=== PATIENT | female | born 1985 | race Caucasian/White ===

== ENCOUNTER 2018-07-27 19:45 | Inpatient (IN) | payer BC, OTHER ==
[~2018-07-27] VITALS: Ht 165.1 cm; Wt 81.0 kg
[2018-07-27] MEDS: LACTATED RINGERS 1,000 ML IV SCH (09:00)
[2018-07-27] MEDS ORDERED: OXYTOCIN 30U/ 0.9% NaCL 500ML 500 ML IV ONE (20:27)
[2018-07-27] MEDS ORDERED: D5%-LACTATED RINGERS 1,000 ML IV SCH (20:27)
[2018-07-27] MEDS ORDERED: MISOPROSTOL 25 MCG TABLET VG PRN (20:30)
[2018-07-27] MEDS ORDERED: ONDANSETRON 2MG/ML, 2ML IVPush PRN (20:30)
[2018-07-27] MEDS ORDERED: FENTANYL PF 100 MCG/2ML IVPush PRN (20:30)
[2018-07-27] MEDS ORDERED: CALCIUM CARBONATE 500 MG TAB.CHEW PO PRN (20:30)
[2018-07-27] MEDS ORDERED: FENTANYL PF 100 MCG/2ML IV PRN (20:30)
[2018-07-27] MEDS ORDERED: NEWBORN KIT ONE (20:36)
[2018-07-27] MEDS ORDERED: MISOPROSTOL 200 MCG TABLET ONE (20:37)
[2018-07-27] MEDS ORDERED: LIDOCAINE/PF 1%, 30ML ONE (20:37)
[2018-07-27] MEDS ORDERED: MISOPROSTOL 25 MCG TABLET ONE (20:51)
[2018-07-27 20:54] LABS: BASOPHILS # (AUTO) 0.03 x10^3/uL (0-0.1); BASOPHILS % (AUTO) 0 % (0-1); EOSINOPHILS # (AUTO) 0.06 x10^3/uL (0-0.4); EOSINOPHILS % (AUTO) 1 % (1-7); LYMPHOCYTES # (AUTO) 2.21 x10^3/uL (1-3.4); LYMPHOCYTES % (AUTO) 21 % (22-44); MD NO; MEAN CORPUSCULAR HEMOGLOBIN 33.3 pg (27.0-34.8); MEAN CORPUSCULAR VOLUME 97.7 fL (80-100); MEAN PLATELET VOLUME 8.5 fL (7.4-10.4); MONOCYTES # (AUTO) 0.96 x10^3/uL (0.2-0.8); MONOCYTES % (AUTO) 9 % (2-9); NEUTROPHILS # (AUTO) 7.05 x10^3/uL (1.8-6.8); NEUTROPHILS % (AUTO) 68 % (42-75); PLATELET COUNT 180 x10^3/uL (130-400); RED CELL DISTRIBUTION WIDTH 13.6 % (9.6-15.2)
[2018-07-27] MEDS: PLEASE ENTER HEIGHT AND WEIGHT MC SCH (21:00)
[2018-07-27 21:22] VITALS: BP 123/91
[2018-07-28] MEDS ORDERED: MISOPROSTOL 25 MCG TABLET ONE (02:03)
[2018-07-28] MEDS: PLEASE ENTER HEIGHT AND WEIGHT MC SCH ×3 (05:00→21:00)
[2018-07-28] MEDS ORDERED: LIDOCAINE 2%, 20ML ONE (05:37)
[2018-07-28] MEDS: FENTANYL/BUPIV./NS/PF 250 ML EPIDCONT SCH ×2 (06:47→09:29)
[2018-07-28] MEDS ORDERED: BUPIVACAINE/PF 0.5% ONE (08:05)
[2018-07-28] MEDS ORDERED: OXYTOCIN 30U/ 0.9% NaCL 500ML 500 ML ONE (09:21)
[2018-07-28] MEDS: LACTATED RINGERS 1,000 ML IV SCH ×3 (09:29→19:15)
[2018-07-28] MEDS ORDERED: ONDANSETRON 2MG/ML, 2ML IVPush PRN (09:30)
[2018-07-28] MEDS ORDERED: DIPHENHYDRAMINE 50 MG/ML, 1ML IVPush PRN (09:30)
[2018-07-28] MEDS ORDERED: NALOXONE 0.4 MG/ML, 1ML IVPush PRN (09:30)
[2018-07-28] MEDS ORDERED: EPHEDRINE 50 MG/ML, 1ML IVPush PRN (09:30)
[2018-07-28] MEDS ORDERED: LACTATED RINGERS 1,000 ML IVBOLUS PRN (09:30)
[2018-07-28 19:36] VITALS: BP 118/77
[2018-07-28] MEDS ORDERED: SODIUM CITRATE/CITRIC ACID 30 ML UDC ONE (20:10)
[2018-07-28] MEDS ORDERED: METOCLOPRAMIDE 5 MG/ML, 2ML ONE (20:10)
[2018-07-28] MEDS ORDERED: OXYTOCIN 10 UNITS/ML, 1ML ONE (20:52)
[2018-07-28] MEDS ORDERED: KETOROLAC 30 MG/1 ML ONE (20:52)
[2018-07-28] MEDS ORDERED: CEFAZOLIN 1,000 MG ONE (20:52)
[2018-07-28] MEDS ORDERED: EPHEDRINE 50 MG/ML, 1ML ONE (20:52)
[2018-07-28] MEDS ORDERED: SODIUM CITRATE/CITRIC ACID 30 ML UDC PO ONE (21:30)
[2018-07-28] MEDS ORDERED: CEFAZOLIN PMX 1GM/50ML 50 ML IVPB ONE (21:30)
[2018-07-28] MEDS ORDERED: METOCLOPRAMIDE 5 MG/ML, 2ML IV ONE (21:30)
[2018-07-28] MEDS ORDERED: PROMETHAZINE 25 MG/ML, 1ML IV PRN (22:30)
[2018-07-28] MEDS ORDERED: MORPHINE SULFATE 4 MG/ML, 1ML IVPush PRN (22:30)
[2018-07-28] MEDS ORDERED: ONDANSETRON 2MG/ML, 2ML IV PRN (22:30)
[2018-07-28] MEDS ORDERED: FENTANYL PF 100 MCG/2ML IV PRN (22:30)
[2018-07-28] MEDS ORDERED: DIPHENHYDRAMINE 50 MG/ML, 1ML IM PRN (22:30)
[2018-07-28] MEDS ORDERED: MEPERIDINE/PF 25MG/0.5ML IVPush PRN (22:30)
[2018-07-29 00:15] VITALS: BP 109/72
[2018-07-29] MEDS: OXYcodone 5 MG/5 ML ORAL.SOL UDC PO PRN ×2 (00:24→00:27)
[2018-07-29] MEDS: FENTANYL/BUPIV./NS/PF 250 ML EPIDCONT SCH ×2 (01:12)
[2018-07-29] MEDS: LACTATED RINGERS 1,000 ML IV SCH ×7 (01:29→23:44)
[2018-07-29] MEDS: OXYTOCIN 30U/ 0.9% NaCL 500ML 500 ML IV SCH ×3 (03:44→23:44)
[2018-07-29] MEDS ORDERED: KETOROLAC 30 MG/1 ML ONE (03:46)
[2018-07-29] MEDS: KETOROLAC 30 MG/1 ML IM SCH ×4 (04:00→22:00)
[2018-07-29] MEDS ORDERED: GLYCERIN ADULT SUPP PR PRN (04:00)
[2018-07-29] MEDS ORDERED: IBUPROFEN 600 MG TABLET PO PRN (04:00)
[2018-07-29] MEDS ORDERED: METHYLERGONOVINE 0.2 MG/ML IM PRN (04:00)
[2018-07-29] MEDS ORDERED: DIPH,PERTUSS(ACELL),TET VAC/PF NC IM-VACC PRN (04:00)
[2018-07-29] MEDS ORDERED: BISACODYL 10 MG SUPP PR PRN (04:00)
[2018-07-29] MEDS: KETOROLAC 30 MG/1 ML IV SCH ×4 (04:00→22:21)
[2018-07-29] MEDS ORDERED: KETOROLAC 30 MG/1 ML IV PRN ×2 (04:00)
[2018-07-29] MEDS ORDERED: ACETAMINOPHEN 325 MG TABLET PO PRN ×2 (04:00)
[2018-07-29] MEDS ORDERED: CARBOPROST TROMETHAMINE 250 MCG/ML, 1ML IM PRN (04:00)
[2018-07-29] MEDS ORDERED: MISOPROSTOL 200 MCG TABLET PR PRN (04:00)
[2018-07-29 04:34] VITALS: BP 112/74
[2018-07-29 06:08] LABS: BASOPHILS # (AUTO) 0.06 x10^3/uL (0-0.1); BASOPHILS % (AUTO) 1 % (0-1); EOSINOPHILS # (AUTO) 0.04 x10^3/uL (0-0.4); EOSINOPHILS % (AUTO) 0 % (1-7); LYMPHOCYTES # (AUTO) 1.74 x10^3/uL (1-3.4); LYMPHOCYTES % (AUTO) 14 % (22-44); MD NO; MEAN CORPUSCULAR HEMOGLOBIN 33.7 pg (27.0-34.8); MEAN CORPUSCULAR HGB CONC 34.8 g/dL (32.4-35.8); MEAN PLATELET VOLUME 8.2 fL (7.4-10.4); MONOCYTES # (AUTO) 0.91 x10^3/uL (0.2-0.8); MONOCYTES % (AUTO) 7 % (2-9); NEUTROPHILS # (AUTO) 9.62 x10^3/uL (1.8-6.8); NEUTROPHILS % (AUTO) 78 % (42-75); PLATELET COUNT 134 x10^3/uL (130-400); RED BLOOD COUNT 3.35 x10^6/uL (3.82-5.3); RED CELL DISTRIBUTION WIDTH 13.5 % (9.6-15.2)
[2018-07-29] MEDS: HYDROcodone/APAP 5/325 TABLET PO PRN ×2 (06:14→10:30)
[2018-07-29 08:00] VITALS: BP 115/76
[2018-07-29] MEDS: PRENATAL VIT/IRON/FA 1 EACH TABLET PO SCH (09:00)
[2018-07-29] MEDS: OXYcodone/APAP 5/325MG TABLET PO PRN ×3 (14:24→22:21)
[2018-07-29 19:10] VITALS: BP 127/85
[2018-07-29] MEDS: DOCUSATE 100 MG CAPSULE PO PRN (22:21)
[2018-07-30] MEDS: LACTATED RINGERS 1,000 ML IV SCH ×5 (03:44→19:44)
[2018-07-30] MEDS: KETOROLAC 30 MG/1 ML IM SCH ×4 (04:00→22:00)
[2018-07-30] MEDS: KETOROLAC 30 MG/1 ML IV SCH ×5 (04:09→22:20)
[2018-07-30] MEDS: OXYcodone/APAP 5/325MG TABLET PO PRN ×5 (04:09→20:03)
[2018-07-30 08:00] VITALS: BP 113/79
[2018-07-30] MEDS: DOCUSATE 100 MG CAPSULE PO PRN ×2 (08:34→20:02)
[2018-07-30] MEDS: PRENATAL VIT/IRON/FA 1 EACH TABLET PO SCH (09:00)
[2018-07-30] MEDS: OXYTOCIN 30U/ 0.9% NaCL 500ML 500 ML IV SCH ×2 (09:44→19:44)
[2018-07-30 20:00] VITALS: BP 124/82
[2018-07-30] MEDS: IBUPROFEN 800 MG TABLET PO PRN (22:41)
[2018-07-31] MEDS: LACTATED RINGERS 1,000 ML IV SCH ×2 (03:44→05:44)
[2018-07-31] MEDS: OXYcodone/APAP 5/325MG TABLET PO PRN ×2 (04:29→08:18)
[2018-07-31] MEDS: OXYTOCIN 30U/ 0.9% NaCL 500ML 500 ML IV SCH (05:44)
[2018-07-31 08:05] VITALS: BP 100/68
[2018-07-31] MEDS: IBUPROFEN 800 MG TABLET PO PRN (08:18)
[2018-07-31] MEDS: DOCUSATE 100 MG CAPSULE PO PRN (08:18)
[2018-07-31] MEDS ORDERED: IBUP-1222 PO (08:27)
[2018-07-31] MEDS ORDERED: OXYC-302 PO (08:32)
[2018-07-31] MEDS: PRENATAL VIT/IRON/FA 1 EACH TABLET PO SCH (09:00)
== END 2018-07-31 10:51 | disposition home or self-care (01) | DRG 788 ==
LOC: LDIP 20:02 → 2NW 07-28 23:45
PROVIDERS: ADMIT Obstetrics & Gynecology; ATTEND Obstetrics & Gynecology
PROC: 10D00Z1 Extraction of Products of Conception, Low, Open Approach (ICD-10-PCS; principal; 2018-07-28)
DX: O48.0 Post-term pregnancy (principal); O69.81X0 Labor and delivery complicated by cord around neck, without compression, not applicable or unspecified; O76 Abnormality in fetal heart rate and rhythm complicating labor and delivery; O62.1 Secondary uterine inertia; Z3A.40 40 weeks gestation of pregnancy; Z37.0 Single live birth
CPT/HCPCS: 36415; 85025; 86850; 86900; G0378; J0690; J1885; J3490; J2590; J2765; J3010; J7120